=== PATIENT | male | born 1970 | race Caucasian/White ===

== ENCOUNTER 2018-08-10 16:33 | Emergency (ER) | payer SELFPAY ==
[2018-08-10] MEDS ORDERED: MORPHINE 2 MG/ML SYR ONE (17:31)
[2018-08-10] MEDS ORDERED: ONDANSETRON 4 MG/2 ML VIAL ONE (17:31)
[2018-08-10 17:40] LABS: Absolute Lymphocytes (CBC) 1.8 K/uL (0.7-4.9); Absolute Monocytes 0.6 K/uL (0.1-1.3); Absolute Neutrophil 8.8 K/uL (1.8-8.0); Basophils % 0.3 % (0-1.3); Eosinophils % 0.7 % (0-4.4); Hematocrit 42.9 % (39.6-49.0); Lymphocytes % 15.8 % (15.3-44.8); MPV 8.2 fL (7.6-11.3); Monocytes % 5.3 % (3.3-12.3); RBC Red Blood Cell Count 4.94 M/uL (4.33-5.43)
[2018-08-10 17:41] LABS: Urine Blood NEGATIVE (NEG); Urine Glucose NEGATIVE (NEG); Urine Protein NEGATIVE (NEG); Urine Specific Gravity 1.015 (1.005-1.030)
[2018-08-10 17:56] LABS: Albumin 4.1 g/dL (3.4-5.0); Bilirubin Direct 0.2 mg/dL (0-0.2); Bilirubin Total 0.8 mg/dL (0.2-1.0); Potassium 3.6 mmol/L (3.5-5.1); Protein, Total 7.7 g/dL (6.4-8.2)
--- NOTE | 2018-08-10 18:45 | RAD REPORT ---
EXAM DESCRIPTION: CT - Abdomen Pelvis W Contrast - 08/10/2018 6:13 pm CLINICAL HISTORY: Abdominal pain COMPARISON: none. TECHNIQUE: Computed axial tomography of the abdomen pelvis was obtained. 100 cc Isovue-300 was admin istered intravenously. Oral contrast was not requested which limits evaluation of bowel. All CT scans are performed using dose optimization technique as appropriate and may include automated exposure control or mA/KV adjustment according to patient size. FINDINGS: The liver, spleen, pancreas, and adrenals appear unremarkable. Bilateral renal cysts. Larg est cyst is present within the left kidney measuring 6 centimeters Diverticula stem from the colon without evidence of diverticulitis. The appendix is normal. Small inguinal hernias contain fat Several E mildly dilated fluid-filled jejunal loops IMPRESSION: Small bilateral inguinal hernias Several mildly dilated fluid-filled jejunal loops may indicate an enteritis
--- NOTE | 2018-08-10 19:07 | EDPHYS ---
Physician Documentation [facility] Name: Michael Rivera Age: 47 yrs Sex: Male : 1970 Arrival Date: 08/10/2018 Time: 16:38 Bed 23 Private MD: ED Physician Noel Rodriguez HPI: 08/10 17:05 This 47 yrs old Male presents to ER via Ambulatory with complaints of Hernia. jmm 17:05 The patient presents with right groin pain. Onset: The symptoms/episode began/occurred jmm acutely, today. Modifying factors: The symptoms are alleviated by supine position. This is a 47 year old male with no chronic medical conditions that presents to the ED with complaints of nausea and right groin pain. patient denies fever, denies vomiting, denies diarrhea. . Historical: - Allergies: 16:47 No Known Allergies; la1 - PMHx: 16:47 None; la1 - PSHx: 16:47 Hernia repair; sinus sx; la1 - Immunization history:: Adult Immunizations up to date. - Social history:: Smoking status: Patient/guardian denies using tobacco. - Ebola Screening: : No symptoms or risks identified at this time. ROS: 17:05 Constitutional: Negative for fever, chills, and weight loss, Cardiovascular: Negative jmm for chest pain, palpitations, and edema, Respiratory: Negative for shortness of breath, cough, wheezing, and pleuritic chest pain. 17:05 Abdomen/GI: Positive for abdominal pain, nausea. 17:05 All other systems are negative. Exam: 17:05 Constitutional: This is a well developed, well nourished patient who is awake, alert, jmm and in no acute distress. Head/Face: atraumatic. Eyes: EOMI, no conjunctival erythema appreciated ENT: Moist Mucus Membranes Neck: Trachea midline, Supple Chest/axilla: Normal chest wall appearance and motion. Cardiovascular: Regular rate and rhythm. No edema appreciated Respiratory: Normal respirations, no respiratory distress appreciated 17:05 Skin: General appearance color normal MS/ Extremity: Moves all extremities, no obvious deformities appreciated, no edema noted to the lower extremities Neuro: Awake and alert, normal gait Psych: Behavior is normal, Mood is normal, Patient is cooperative and pleasant 17:05 Abdomen/GI: Palpation: abdomen is soft and non-tender, in all quadrants, right groin TTP. 17:05 Back: ROM is normal. Vital Signs: 16:47 BP 135 / 91; Pulse 97; Resp 16; Temp 98.4; Pulse Ox 98% on R/A; Weight 102.06 kg; la1 Height 5 ft. 10 in. (177.80 cm); 17:00 BP 148 / 94; Pulse 85; Resp 18; Pulse Ox 100% on R/A; tl3 18:15 BP 138 / 85; Pulse 67; Resp 18; Pulse Ox 98% on R/A; tl3 19:09 BP 132 / 83; Pulse 72; Resp 18; Pulse Ox 100% on R/A; tl3 16:47 Body Mass Index 32.28 (102.06 kg, 177.80 cm) la1 MDM: 17:02 Patient medically screened. [facility] 19:03 Data reviewed: vital signs, nurses notes. Counseling: I had a detailed discussion with rosalva the patient and/or guardian regarding: the historical points, exam findings, and any diagnostic results supporting the discharge/admit diagnosis, lab results, radiology results, the need for outpatient follow up, to return to the emergency department if symptoms worsen or persist or if there are any questions or concerns that arise at home. ED course: Ct results discussed with the patient along with return precautions for increased pain, vomiting, fever, ext. Patient understood and agrees with the plan of care. . 08/10 17:03 Order name: Basic Metabolic Panel; Complete Time: 17:58 [facility] 08/10 17:03 Order name: CBC with Diff; Complete Time: 17:54 [facility] 08/10 17:03 Order name: Creatinine for Radiology; Complete Time: 17:58 [facility] 08/10 17:03 Order name: Hepatic Function; Complete Time: 17:58 [facility] 08/10 17:03 Order name: Lipase; Complete Time: 17:58 [facility] 08/10 17:35 Order name: Urine Dipstick--Ancillary (enter results); Complete Time: 17:54 [place] 08/10 17:03 Order name: IV Saline Lock; Complete Time: 17:36 [facility] 08/10 17:03 Order name: Labs collected and sent; Complete Time: 17:36 [facility] 08/10 17:03 Order name: CT Abd/Pelvis - W/Contrast; Complete Time: 18:51 [facility] Administered Medications: 17:35 Drug: Zofran 4 mg Route: IVP; Infused Over: 2 mins; Site: right antecubital; tl3 19:06 Follow up: Response: No adverse reaction tl3 17:35 Drug: morphine 2 mg Route: IVP; Infused Over: 1 mins; Site: right antecubital; tl3 19:06 Follow up: Response: No adverse reaction; Marked relief of symptoms tl3 Disposition: 08/11 16:49 Co-signature as Attending Physician, Noel Rodriguez MD. Disposition: 08/10/18 19:05 Discharged to Home. Impression: Inguinal hernia, Gastroenterititis. - Condition is Stable. - Discharge Instructions: Viral Gastroenteritis, Adult, Inguinal Hernia, Adult. - Prescriptions for Zofran ODT 4 mg Oral tablet,disintegrating - place 1 tablet by TRANSLINGUAL route every 4-6 hours; 20 tablet. Ultracet 37.5- 325 mg Oral Tablet - take 1 tablet by ORAL route every 6 hours - for up to 5 days; do not exceed 8 tablets per day.; 12 tablet. - Medication Reconciliation Form, Thank You Letter, Antibiotic Education, Prescription Opioid Use form. - Follow up: Angel Gonzalez MD; When: 2 - 3 days; Reason: Recheck today's complaints, Continuance of care, Re-evaluation by your physician. Signatures: Dispatcher [employer] EDMS Mike Langley PA PA [facility] Zack Mcrae RN RN la1 Noel Rodriguez MD MD Minerva Peraza RN RN tl3 Corrections: (The following items were deleted from the chart) 08/10 19:06 19:05 08/10/2018 19:05 Discharged to Home. Impression: Inguinal hernia; erwin Gastroenterititis. Condition is Stable. Forms are Medication Reconciliation Form, Thank You Letter, Antibiotic Education, Prescription Opioid Use. Follow up: Angel Gonzalez; When: 2 - 3 days; Reason: Recheck today's complaints, Continuance of care, Re-evaluation by your physician. [facility] 19:07 19:06 08/10/2018 19:05 Discharged to Home. Impression: Inguinal hernia; jmm Gastroenterititis; Cystic kidney disease, unspecified. Condition is Stable. Discharge Instructions: Viral Gastroenteritis, Adult, Inguinal Hernia, Adult. Prescriptions for Zofran ODT 4 mg Oral tablet,disintegrating - place 1 tablet by TRANSLINGUAL route every 4-6 hours; 20 tablet, Ultracet 37.5-325 mg Oral Tablet - take 1 tablet by ORAL route every 6 hours - for up to 5 days; do not exceed 8 tablets per day.; 12 tablet. and Forms are Medication Reconciliation Form, Thank You Letter, Antibiotic Education, Prescription Opioid Use. Follow up: Angel Gonzalez; When: 2 - 3 days; Reason: Recheck today's complaints, Continuance of care, Re-evaluation by your physician. rosalva 19:58 19:07 08/10/2018 19:05 Discharged to Home. Impression: Inguinal hernia; tl3 Gastroenterititis. Condition is Stable. Discharge Instructions: Viral Gastroenteritis, Adult, Inguinal Hernia, Adult. Prescriptions for Zofran ODT 4 mg Oral tablet,disintegrating - place 1 tablet by TRANSLINGUAL route every 4-6 hours; 20 tablet, Ultracet 37.5-325 mg Oral Tablet - take 1 tablet by ORAL route every 6 hours - for up to 5 days; do not exceed 8 tablets per day.; 12 tablet. and Forms are Medication Reconciliation Form, Thank You Letter, Antibiotic Education, Prescription Opioid Use. Follow up: Angel Gonzalez; When: 2 - 3 days; Reason: Recheck today's complaints, Continuance of care, Re-evaluation by your physician. rosalva
--- NOTE | 2018-08-10 19:07 | ER ---
Nurse's Notes [facility] Name: Michael Rivera Age: 47 yrs Sex: Male : 1970 Arrival Date: 08/10/2018 Time: 16:38 Bed 23 Private MD: Diagnosis: Inguinal hernia;Gastroenterititis Presentation: 08/10 16:46 Presenting complaint: Patient states: I was having some nausea at work and didn't think la1 anything of it but when I took a shower I feel a bulge and a tender area by my right inner thigh. Transition of care: patient was not received from another setting of care. Onset of symptoms was August 10, 2018. Risk Assessment: Do you want to hurt yourself or someone else? Patient reports no desire to harm self or others. Initial Sepsis Screen: Does the patient meet any 2 criteria? No. Patient's initial sepsis screen is negative. Does the patient have a suspected source of infection? No. Patient's initial sepsis screen is negative. Care prior to arrival: None. 16:46 Method Of Arrival: Ambulatory la1 16:46 Acuity: GRAY 3 la1 Historical: - Allergies: 16:47 No Known Allergies; la1 - PMHx: 16:47 None; la1 - PSHx: 16:47 Hernia repair; sinus sx; la1 - Immunization history:: Adult Immunizations up to date. - Social history:: Smoking status: Patient/guardian denies using tobacco. - Ebola Screening: : No symptoms or risks identified at this time. Screenin:00 Abuse screen: Denies threats or abuse. Nutritional screening: No deficits noted. tl3 Tuberculosis screening: No symptoms or risk factors identified. Fall Risk None identified. Assessment: 17:00 Reassessment: pt reports right groin pain with poss. hernia. General: Appears tl3 uncomfortable, well groomed, well developed, well nourished, Behavior is calm, cooperative, appropriate for age. Pain: Complains of pain in right groin. Neuro: Level of Consciousness is awake, alert, obeys commands, Oriented to person, place, time, situation, Appropriate for age. Cardiovascular: Patient's skin is warm and dry. Respiratory: Airway is patent Respiratory effort is even, unlabored, Respiratory pattern is regular, symmetrical. GI: No signs and/or symptoms were reported involving the gastrointestinal system. : No signs and/or symptoms were reported regarding the genitourinary system. EENT: No signs and/or symptoms were reported regarding the EENT system. Derm: No signs and/or symptoms reported regarding the dermatologic system. Musculoskeletal: No signs and/or symptoms reported regarding the musculoskeletal system. 18:15 Reassessment: Patient appears in no apparent distress at this time. No changes from tl3 previously documented assessment. Patient and/or family updated on plan of care and expected duration. Pain level reassessed. Patient is alert, oriented x 3, equal unlabored respirations, skin warm/dry/pink. pt returned from CT. 19:09 Reassessment: Patient appears in no apparent distress at this time. No changes from tl3 previously documented assessment. Patient and/or family updated on plan of care and expected duration. Pain level reassessed. Patient is alert, oriented x 3, equal unlabored respirations, skin warm/dry/pink. Mike at bedside discussing POC with pt. Vital Signs: 16:47 BP 135 / 91; Pulse 97; Resp 16; Temp 98.4; Pulse Ox 98% on R/A; Weight 102.06 kg; la1 Height 5 ft. 10 in. (177.80 cm); 17:00 BP 148 / 94; Pulse 85; Resp 18; Pulse Ox 100% on R/A; tl3 18:15 BP 138 / 85; Pulse 67; Resp 18; Pulse Ox 98% on R/A; tl3 19:09 BP 132 / 83; Pulse 72; Resp 18; Pulse Ox 100% on R/A; tl3 16:47 Body Mass Index 32.28 (102.06 kg, 177.80 cm) la1 ED Course: 16:38 Patient arrived in ED. mr 16:46 Triage completed. la1 16:47 Arm band placed on right wrist. la1 16:49 Mike Langley PA is PHCP. [facility] 16:49 Noel Rodriguez MD is Attending Physician. [facility] 17:00 Minerva Peraza, [place] is Primary Nurse. tl3 17:00 Patient has correct armband on for positive identification. Bed in low position. Call tl3 light in reach. Adult w/ patient. Pulse ox on. NIBP on. 17:00 No provider procedures requiring assistance completed. Initial lab(s) drawn, by ks, tl3 sent to lab. Inserted saline lock: 20 gauge in right antecubital area, using aseptic technique. Blood collected. 17:15 Radiology exam delayed due to lab results not completed at this time. IV insertion kw1 attempt and/or patient not having appropriate IV at this time. 18:13 CT Abd/Pelvis - W/Contrast In Process Unspecified. EDMS 19:05 Angel Gonzalez MD is Referral Physician. jmm 19:16 IV discontinued, intact, bleeding controlled, No redness/swelling at site. Pressure tl3 dressing applied. Administered Medications: 17:35 Drug: Zofran 4 mg Route: IVP; Infused Over: 2 mins; Site: right antecubital; tl3 19:06 Follow up: Response: No adverse reaction tl3 17:35 Drug: morphine 2 mg Route: IVP; Infused Over: 1 mins; Site: right antecubital; tl3 19:06 Follow up: Response: No adverse reaction; Marked relief of symptoms tl3 Outcome: 19:05 Discharge ordered by . [facility] 19:16 Discharged to home ambulatory. tl3 19:16 Condition: stable 19:16 Discharge instructions given to patient, Instructed on discharge instructions, follow up and referral plans. medication usage, Demonstrated understanding of instructions, follow-up care, medications, waiting for CT copy 19:58 Patient left the ED. tl3 Signatures: Dispatcher [employer] EDMS Mike Langley PA PA jmm Rivera, Mary mr Zack Mcrae, RN RN la1 Mayra Crawford kw1 Minerva Peraza RN RN tl3
== END 2018-08-10 19:58 | disposition home or self-care (01) ==
LOC: ER 16:33
DX: K40.90 Unilateral inguinal hernia, without obstruction or gangrene, not specified as recurrent (principal); K52.9 Noninfective gastroenteritis and colitis, unspecified
CPT/HCPCS: 36415; 74177; 80048; 80076; 81003; 83690; 85025; 96374; 96375; 99284; J2270; J2405